=== PATIENT | male | born 1990 | race African-American/Black ===

== ENCOUNTER 2025-06-07 11:21 | Emergency (ER) | payer OTHER ==
[~2025-06-07] VITALS: Ht 180.3 cm; Wt 78.3 kg
[~2025-06-07 11:21] MED LIST: DOCU-28 PO; HYDR30CR79 TP; PANT20TA2 PO
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
[2025-06-07] MEDS ORDERED: iohexol 300mg/ml 100ml inj. ONE (13:02)
[2025-06-07] MEDS: ketorolac trometh 30MG/ML vial 30 MG/ML VIAL IV ONE (13:03)
[2025-06-07 13:17] LABS: MEAN PLATELET VOLUME 7.6 FL (7.4-10.4); RED CELL DISTRIBUTION WIDTH 13.7 % (11.5-14.5)
[2025-06-07 13:31] LABS: CREATININE 1.13 MG/DL (0.60-1.10); TOTAL CARBON DIOXIDE 30.1 MMOL/L (24-32); eCRCL 100 ML/MIN; eGFR > 90 ML/MIN
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
[2025-06-07 15:59] VITALS: BP 121/78; PULSE 71; RESP 18; O2SAT 100
[2025-06-07] MEDS ORDERED: CYCL-394 PO (16:59)
[2025-06-07] MEDS ORDERED: NAPR-56 PO (16:59)
[2025-06-07 17:10] VITALS: TEMP 99
== END 2025-06-07 17:14 | disposition home or self-care (01) ==
LOC: ER 11:22
DX: G89.11 Acute pain due to trauma (principal); M62.838 Other muscle spasm; Z79.899 Other long term (current) drug therapy; V43.52XA Car driver injured in collision with other type car in traffic accident, initial encounter; Y93.89 Activity, other specified; Y92.89 Other specified places as the place of occurrence of the external cause; Y99.8 Other external cause status
CPT/HCPCS: 36415; 70450; 71260; 72125; 72128; 72131; 73030; 74177; 80048; 82550; 83690; 84484; 85025; 96374; 99285; J1885; Q9967